=== PATIENT | female | born 1995 | race Caucasian/White ===

== ENCOUNTER 2025-07-08 09:34 | Outpatient (CLI) | payer OTHER, SELFPAY ==
--- NOTE | ~2025-07-08 | MR_ITS ---
EXAMINATION: MR brain/brain stem wo con DATE: 07/08/2025 10:20 INDICATION: Frequent headaches TECHNIQUE: Magnetic resonance imaging (MRI) of the brain and brainstem was performed without intravenous contrast. Sequences included sagittal and axial T1-weighted SE, axial diffusion-weighted FS SE, axial 3D SWAN, axial T2-weighted FLAIR, and axial T2-weighted FSE. Apparent diffusion coefficient (ADC) maps were created. COMPARISON: None. FINDINGS: There are no areas of restricted diffusion to suggest acute infarction. No intracranial hemorrhage or abnormal intracranial mass lesion. There are at least 14 small foci of nonspecific increased T2-weighted signal intensity in the cerebral white matter which is atypical for age. There are no intraparenchymal signal abnormalities seen on the other pulse sequences. The ventricles are symmetric and normal in size. There are no abnormal extra-axial fluid collections. Flow voids are seen in the cerebral arteries on the T2-weighted sequences consistent with their expected patency. T2 hyperintense likely mucous retention cyst in the left maxillary sinus. Visualized orbits and soft tissues are unremarkable. IMPRESSION: 1. At least 14 small foci of nonspecific cerebral white matter T2 hyperintensity which is atypical for age. The differential diagnosis includes premature chronic small vessel ischemic disease (especially if the patient has cardiovascular risk factors), demyelinating disease such as multiple or acute disseminated encephalomyelitis (ADEM), drug abuse, vasculitis, or reactive astrocytosis (gliosis) secondary to nonspecific etiology. Reviewed, dictated and finalized at location A. IMPRESSION: 1. At least 14 small foci of nonspecific cerebral white matter T2 hyperintensit y which is atypical for age. The differential diagnosis includes premature [employer] [place] small vessel ischemic disease (especially if the patient has cardiovascular risk factors), demyelinating disease such as multiple or acute disseminated en cephalomyelitis (ADEM), drug abuse, vasculitis, or reactive astrocytosis (glios is) secondary to nonspecific etiology.
== END 2025-07-08 09:35 | disposition home or self-care (01) ==
DX: M54.2 Cervicalgia (principal); M25.511 Pain in right shoulder; M25.512 Pain in left shoulder; R53.83 Other fatigue; R25.2 Cramp and spasm; R51.9 Headache, unspecified; R29.898 Other symptoms and signs involving the musculoskeletal system; R90.82 White matter disease, unspecified
CPT/HCPCS: 70551